=== PATIENT | female | born 1960 ===

== ENCOUNTER 2025-01-06 07:04 | Day surgery (SDC) | payer OTHER, SELFPAY ==
[2025-01-06] VITALS (21 sets, daily range): BP systolic 104–153; BP diastolic 54–86; BMI 29.5
[2025-01-06] MEDS: NSS 219 ML IV (08:01)
[2025-01-06 08:07] LABS: Hematocrit 38.0 % (37.0-47.0); Hemoglobin 12.4 g/dL (12.0-16.0); Mean Corp Hgb Conc. 32.6 g/dL (33.0-37.0); Mean Corpuscular Volume 78.8 fL (81.0-99.0); Platelet Count 328 10^3/uL (130-400); Red Cell Dist. Width 14.2 % (11.5-14.5)
[2025-01-06 08:59] LABS: Blood Urea Nitrogen 14 mg/dl (7-17); Calcium 8.6 mg/dl (8.4-10.2); Carbon Dioxide 28 mmol/L (22-30); Chloride 109 mmol/L (98-107); Estimated Creatinine Clearance 89 ml/min; Glucose 92 mg/dl (70-99); Potassium 3.4 mmol/L (3.5-5.1); Sodium 139 mmol/L (135-145); eGFR > 60.00
--- NOTE | 2025-01-06 11:08 | ITS.CL.CATH ---
Test Man - Catheterization
Cardiac Catheterization
Procedure Report:
LEFT HEART CATHETERIZATION
Date of Procedure: January 06, 2025
Referring: Reed Ventura MD
PROCEDURES:
1. Left heart catheterization, coronary angiogram.
2. Moderate sedation.
INDICATION: Ongoing dyspnea on exertion and concern for an abnormal stress test
ACCESS: Right radial artery, 6Fr. sheath, under US guidance.
HEMODYNAMICS : (mmHg)
AO (s/d) : 155/80
LVEDP : 19
No significant gradient across the aortic valve to suggest aortic stenosis.
CORONARY FINDINGS: Moderately tortuous coronary arteries.
Dominance: Right
Left Main Trunk (LMT): Large caliber vessel that gives rise to the LAD and LCx branches and is free of angiographic disease.
Left Anterior Descending Artery (LAD): Large caliber vessel that gives off 2 major diagonal branches as it courses along the anterior inter-ventricular groove before wrapping around the cardiac apex. There is minimal luminal irregularities.
Left Circumflex Artery (LCx): Large caliber vessel that gives off 1 major obtuse marginal (OM) branch as it courses along the atrio-ventricular (AV) groove. There is minimal luminal irregularities.
Right Coronary Artery (RCA): Medium caliber dominant vessel that gives rise to a small caliber right posterior descending artery with minimal luminal irregularities.
SEDATION: 27 minutes of procedural sedation was utilized. IV Midazolam and IV Fentanyl were administered. An independent medical staff manager was present to assist with and help manage the patient's level of consciousness and physiologic status.
RADIATION SUMMARY: Fluoro Time (min): 3.0, Dose (mGy): 233.76, DAP (Gy.cm2) : 15.2
Closure Device: There were no immediate intra-procedural complications. The sheath was pulled in the cath lab tech and a vascular-band applied to the right wrist for radial artery hemostasis using the patent hemostasis technique.
CONCLUSIONS
1. No obstructive coronary artery disease.
2. Moderately tortuous coronary arteries.
3. Elevated LVEDP at 19 mmHg.
RECOMMENDATIONS
1. Wean radial band per protocol. Monitor right hand perfusion and for bleeding from the radial site following removal of the vascular-band following trans-radial access.
2. Continue aggressive medical therapy and risk factor modification for secondary CAD prevention.
3. Hydrate with normal saline to mitigate the risk of contrast-induced acute kidney injury.
4. Follow-up with Dr. Reed Ventura
5. Will trial low-dose diuretics. We discussed that in case her dyspnea on exertion is not significantly improved, to consider pulmonary evaluation.
Copy to: Reed Ventura MD
Avelina Dexter MD, FACC, [facility]
[2025-01-06] MEDS: LASIX 20 MG IV (11:53)
[2025-01-06] MEDS: KCL 40 MEQ PO (11:54)
== END 2025-01-06 14:53 | disposition home or self-care (01) ==
LOC: CATH 07:04
PROVIDERS: ATTENDING PHYSICIAN Internal Medicine Interventional Cardiology; FAMILY PHYSICIAN Family Medicine; REFERRING PHYSICIAN Internal Medicine Cardiovascular Disease
DX: R06.09 Other forms of dyspnea (principal); R94.31 Abnormal electrocardiogram [ECG] [EKG]; I10 Essential (primary) hypertension; E78.5 Hyperlipidemia, unspecified; I49.3 Ventricular premature depolarization; I47.29 Other ventricular tachycardia; I47.10 Supraventricular tachycardia, unspecified; G47.33 Obstructive sleep apnea (adult) (pediatric); Z85.3 Personal history of malignant neoplasm of breast; Z79.82 Long term (current) use of aspirin
CPT/HCPCS: 99152; 99153; C1894; 80048; 85027; 93458; Q9967